=== PATIENT | female | born 1990 | race Caucasian/White ===

== ENCOUNTER 2017-04-16 15:21 | Emergency (ER) | payer BC ==
[2017-04-16] MEDS ORDERED: Tetan/Diph/Pertus SYR(Tdap)* 0.5 ML SYR(BOOSTRIX) use SYR IM ONE (15:41)
--- NOTE | 2017-04-16 16:10 | UC ---
Laceration HPI - HPI Summary HPI Summary: PT PRESENTS WITH C/O LACERATRION TO RIGHT SIDE FOREHEAD. PT WAS WALKING THOUGH [place] TODAY AND WALKED INTO [place]. DENIES LOC, NAUSEA VOMITING OR JOY - History Of Current Complaint Stated Complaint: HEAD LAC Time Seen by Provider: 04/16/17 15:31 Hx Obtained From: Patient Laceration Location: Head - forehead Mechanism Of Injury: Blunt Trauma Onset/Duration: Sudden Onset Severity: Mild Aggravating Factors: Movement Related History: Dominant Hand Right - Allergies/Home Medications Allergies/Adverse Reactions: Allergies Allergy/AdvReac Type Severity Reaction Status Date / Time No Known Allergies Allergy Verified 04/16/17 16:11 Home Medications: Home Medications Ibuprofen TAB* [Motrin TAB* 800 MG] 800 mg PO Q6H 04/16/17 [History Confirmed ] PMH/Surg Hx/FS Hx/Imm Hx Previously Healthy: Yes - Family History Known Family History: Positive: Other - positive [facility] for laceration - Social History Lives: With Family Review of Systems Constitutional: Negative Skin: Other - laceration Eyes: Negative ENT: Negative Respiratory: Negative Cardiovascular: Negative Gastrointestinal: Negative Genitourinary: Negative Motor: Negative Neurovascular: Negative Musculoskeletal: Negative Neurological: Negative Psychological: Negative All Other Systems Reviewed And Are Negative: Yes Physical Exam Triage Information Reviewed: Yes Appearance: Well-Appearing Vital Signs Reviewed: Yes Eye Exam: Normal ENT Exam: Normal Neck exam: Normal Respiratory Exam: Normal Musculoskeletal Exam: Normal Neurological Exam: Normal Psychological Exam: Normal Skin Exam: Other - laceration right side forehead Laceration Repair - Laceration Repair 1 Description: Linear Laceration Size After Repair: Length (cm) - 2.5, Width (mm) - 3, Depth (mm) - 1 Modified For Repair: No Cleansing Completed Via Routine Prep: Yes Closure Material: [place] Closure Method: Single Layer Suture Of: Skin Laceration Course/Dx - Differential Dx - Laceration/Wound Differental Diagnoses: Laceration Provider Diagnoses: laceration tor right forehead. laceration repair with 2 mary to right side forehead Discharge - Discharge Plan Condition: Stable Disposition: HOME Patient Education Materials: Staple Care (ED), Facial Laceration (ED) Referrals: Lizett Novak NP [Primary Care Provider] - If Needed Additional Instructions: PLEASE RETURN IN 3-5 DAYS FOR STAPLE REMOVAL.
[2017-04-16 16:19] VITALS: BP 102/53
== END 2017-04-16 16:29 | disposition home or self-care (01) ==
LOC: UCCORT 15:21
DX: S01.81XA Laceration without foreign body of other part of head, initial encounter (principal); W22.8XXA Striking against or struck by other objects, initial encounter
CPT/HCPCS: 12051; 90471; 90715; 99201; G0463

== ENCOUNTER 2017-04-20 12:23 | Emergency (ER) | payer BC ==
[2017-04-20 13:43] VITALS: BP 106/56
--- NOTE | 2017-04-20 13:48 | UC ---
Skin Complaint HPI - HPI Summary HPI Summary: Pt presents for staple removal to right side of forehead. Pt had two mary placed on 04/16/17. - History of Current Complaint Chief Complaint: UCGeneralIllness Stated Complaint: SUTURE REMOVAL Hx Obtained From: Patient Hx Last Menstrual Period: 03/27/17 ?: No Onset/Duration: Sudden Onset Skin Exposure Onset/Duration: Days Ago Timing: Constant Onset Severity: Mild Current Severity: Mild Location: Face - right side forehead Aggravating: Touch Alleviating: Unknown Associated Signs & Symptoms: Positive: Negative Related History: Trauma - branch that hit side of head while walking - Allergy/Home Medications Allergies/Adverse Reactions: Allergies Allergy/AdvReac Type Severity Reaction Status Date / Time No Known Allergies Allergy Verified 04/20/17 13:42 Review of Systems Constitutional: Negative Skin: Other - laceration with 2 mary in tact, not s/sx of infection, Eyes: Negative ENT: Negative Respiratory: Negative Cardiovascular: Negative Gastrointestinal: Negative Genitourinary: Negative Motor: Negative Neurovascular: Negative Musculoskeletal: Negative Neurological: Negative Psychological: Negative All Other Systems Reviewed And Are Negative: Yes PMH/Surg Hx/FS Hx/Imm Hx Previously Healthy: Yes - Surgical History Surgical History: Yes Surgery Procedure, Year, and Place: T/A. Hernia - Family History Known Family History: Positive: Other - positive [facility] for laceration - Social History Lives: With Family Alcohol Use: Rare Substance Use Type: Marijuana Substance Use Comment - Amount & Last Used: occasionally Smoking Status (MU): Current Every Day Smoker - Immunization History Most Recent Influenza Vaccination: NONE 2016 Physical Exam Triage Information Reviewed: Yes Appearance: Well-Appearing Vital Signs: Initial Vital Signs Temp 99.2 F 04/20/17 13:38 Pulse 56 04/20/17 13:38 Resp 16 04/20/17 13:38 BP 106/56 04/20/17 13:38 Pulse Ox 98 04/20/17 13:38 Eye Exam: Normal Neck exam: Normal Respiratory Exam: Normal Respiratory: Positive: No respiratory distress Musculoskeletal Exam: Normal Neurological Exam: Normal Psychological Exam: Normal Skin Exam: Other - two mary removed from right side of forehead. edges well approximated, Course/Dx - Differential Diagnoses - Skin Complaint Differential Diagnoses: Other - staple removal healing wound - Diagnoses Provider Diagnoses: staple removal. healing laceration Discharge - Discharge Plan Condition: Stable Disposition: HOME Patient Education Materials: Stitches Removal (ED), Facial Laceration (ED) Referrals: No Primary Care Phys,NOPCP [Primary Care Provider] - If Needed
== END 2017-04-20 14:01 | disposition home or self-care (01) ==
LOC: UCCORT 12:23
DX: Z45.02 Encounter for adjustment and management of automatic implantable cardiac defibrillator (principal); F17.200 Nicotine dependence, unspecified, uncomplicated

== ENCOUNTER 2018-07-15 06:03 | Inpatient (IN) | payer BC ==
[2018-07-14 16:15] LABS: ABS Basophils 0 10^3/ul (0-0.2); ABS Eosinophils 0.1 10^3/ul (0-0.6); ABS Neutrophils 9.2 10^3/ul (1.5-7.7); ABS Nucleated RBC 0 10^3/ul; Eosinophil % 0.4 % (0-6); Hematocrit 33 % (35-47); Hemoglobin 11.1 g/dl (12.0-16.0); Lymphocyte % 16.2 % (25-47); Mean Corpuscular HGB Conc 34 g/dl (31-36); Mean Corpuscular Hemoglobin 29 pg (27-31); Mean Corpuscular Volume 86 fL (80-97); Mean Platelet Volume 8.1 um3 (7.4-10.4); Nucleated Red Blood Cells % 0.1; Platelet Count 280 10^3/ul (150-450); Red Blood Count 3.79 10^6/ul (4.00-5.40); Red Cell Distribution Width 13 % (10.5-15); White Blood Count 12.2 10^3/ul (3.5-10.8)
[~2018-07-15 06:03] MED LIST: Buffered Lidocaine 0.9% SYRIN* 5 ML/SYR SYRINGE INTRADERM ONE
[2018-07-15] MEDS ORDERED: ceFOXitin 2 GM IVPREMIX* 2 GM/50 ML BAG IVPB ONE (06:30)
[2018-07-15] MEDS ORDERED: Morphine PF AMP (0.5MG/ML)* 5 MG/10 ML AMP ONE ×2 (07:22→07:23)
[2018-07-15] MEDS ORDERED: ROPIVACAINE 5 MG/ML 30 ML BTL (0.5%) ONE (07:23)
[2018-07-15] MEDS ORDERED: Bupivacaine-MPF SPINAL* 7.5 MG/ML - 2ML AMP ONE ×2 (07:24→08:22)
[2018-07-15] MEDS ORDERED: Lidocaine 2% PF * 5 ML VIAL ONE (07:25)
[2018-07-15] MEDS ORDERED: Sodium Citrate/Citric Acid* 15 ML UDC PO ONE (07:30)
[2018-07-15] MEDS ORDERED: Phenylephrine INJ* 10 MG/ML 1 ML VIAL (10 MG) ONE (07:58)
[2018-07-15] MEDS ORDERED: Ondansetron INJ* 2 MG/ML VIAL ONE (08:30)
[2018-07-15] MEDS ORDERED: Dexamethasone IV* 4 MG/ML 1 ML (4 MG) ONE (08:30)
[2018-07-15] MEDS ORDERED: OXYTOCIN* 10 UNITS/ML 1 ML VIAL ONE (08:30)
[2018-07-15] MEDS ORDERED: fentaNYL* 50 MCG/ML 2 ML VIAL (100 MCG VIAL) IV PRN (08:42)
[2018-07-15] MEDS ORDERED: oxyCODONE TAB* 5 MG TAB PO PRN ×2 (08:42→08:43)
[2018-07-15] MEDS ORDERED: diPHENhydraMINE IV* 50 MG/ML 1 ml VIAL (BENADRYL) IV PRN (08:42)
[2018-07-15] MEDS ORDERED: Naloxone* 0.4 MG/ML 1 ML VIAL IV PRN ×2 (08:42→08:43)
[2018-07-15] MEDS ORDERED: DiMENhydriNATE IV* 50 MG/ML VIAL IV PUSH PRN ×2 (08:42→08:43)
[2018-07-15] MEDS ORDERED: Ketorolac INJ* 30 MG/ML 1 ML VIAL IV PRN (08:42)
[2018-07-15] MEDS ORDERED: Acetaminophen IV 1GM/100ML * 1,000 MG/100 ML VIAL IVPB ONE (08:42)
[2018-07-15] MEDS ORDERED: Scopolamine 1.5 mg* PATCH TRANSDERM PRN (08:43)
[2018-07-15] MEDS ORDERED: Ondansetron INJ* 2 MG/ML VIAL IV PRN (08:43)
[2018-07-15] MEDS ORDERED: Nalbuphine* 10 MG/ML 1 ML VIAL IV PRN (08:43)
[2018-07-15] MEDS ORDERED: Glycerin ADULT SUPP PR PRN (09:07)
[2018-07-15] MEDS ORDERED: Dibucaine 1% 28.35 GM TUBE PR PRN (09:07)
[2018-07-15] MEDS ORDERED: Zolpidem TAB* 5 MG PO PRN (09:07)
[2018-07-15] MEDS ORDERED: Witch Hazel PAD* JAR TOPICAL PRN (09:07)
[2018-07-15] MEDS ORDERED: Ketorolac INJ* 30 MG/ML 1 ML VIAL ONE (09:35)
[2018-07-15] MEDS ORDERED: Acetaminophen IV 1GM/100ML * 100 ML ONE (09:35)
[2018-07-15] MEDS: Simethicone TAB* 80 MG TAB.CHEW PO SCH ×3 (13:05→22:02)
[2018-07-15] MEDS: Docusate CAP* 100 MG PO SCH ×2 (15:21→22:02)
[2018-07-15] MEDS: Ketorolac INJ* 30 MG/ML 1 ML VIAL IV SCH ×2 (15:52→22:02)
[2018-07-15] MEDS: Acetaminophen TAB* 325 MG PO SCH (18:04)
--- NOTE | 2018-07-15 22:23 | OP ---
DATE OF OPERATION: 07/15/18 - ROOM #117 DATE OF : 89 SURGEON: Marina Gonzales MD WOOL WASHING MACHINE OPERATOR: Milton Bauer CNM ANESTHESIOLOGIST: Dr. Yasmin Pearl. ANESTHESIA: Spinal. PRE-OP DIAGNOSIS: Intrauterine , right sacrum anterior mary breech, at 39 and 3/7th weeks. POST-OP DIAGNOSIS: Intrauterine , right sacrum anterior mary breech, at 39 and 3/7th weeks, delivered. OPERATIVE PROCEDURE: Primary low transverse section. ESTIMATED BLOOD LOSS: 500 cc. URINE OUTPUT: 300 cc of clear yellow urine. FLUIDS: 2650 cc of crystalloid. FINDINGS: Revealed mary breech right sacrum anterior, nuchal cord x1, short umbilical cord. Placenta posterior implantation, 3-vessel cord, manually extracted, and intact. Uterine cavity without synechiae, septums or intrauterine abnormalities appreciated. Male , Apgars were 8 at 1 minute , 9 at 5 minutes, weight was 6 pounds 11 ounces. No meconium. COMPLICATIONS: None apparent. DISPOSITION: Stable to recovery room. DESCRIPTION OF PROCEDURE: The patient was placed in dorsal lithotomy position. The abdomen was prepped and draped in a sterile standard fashion. Anesthesia was tested to appropriate level. An incision was made 2 fingerbreadths above the pubic symphysis. This was carried down through the fascia. The fascia was scored in the midline, extended laterally and superiorly using curved Vines scissors. Fascia was sharply from the rectus muscle using blunt and sharp dissection. The peritoneum was then entered bluntly and the peritoneal incision was extended bluntly. The bladder blade was inserted. The lower uterine segment was identified. The bladder flap was created with blunt and sharp dissection. Allis was used to tent up on the lower uterine segment. An incision was made with a scalpel. This was carried down through to membranes. Small amniotomy was created. Bandage scissors were used to extend this incision superiorly and laterally. The infant was found to be right sacrum anterior, buttocks were delivered, then legs, and right and then left shoulder, and then head delivered. Nuchal cord was reduced with head delivery. The cord was noted to be extremely short and the cord was milked and clamped and then cut. The was handed off to awaiting cloud services architect. Appropriate cord blood was obtained. Placenta was then manually extracted, noted to be intact. Three- vessel cord. Uterine cavity was explored, noted to free of any membranes or placental tissues. Uterus was exteriorized, wrapped in warm, moist laparotomy sponge, tubes and ovaries were noted to have a normal appearance. The hysterotomy incision was reapproximated in 2 layers, first layer running locked 0 Vicryl, second layer running imbricated 0 Vicryl. The uterus was returned intraabdominally. Colic gutters were lavaged. Hemostasis was assured at the hysterotomy site. Peritoneum was then clamped with Jackie and reapproximated using 3-0 Vicryl in a running fashion. The subfascial area was visualized and noted to be hemostatic. The fascia was reapproximated using 0 Vicryl x2 in a running fashion. Subcutaneous Camper's fascia was visualized. Hemostasis was assured and the Camper's fascia was approximated using 3-0 Vicryl in an interrupted fashion. The skin was then reapproximated using 4-0 Monocryl in a subcuticular fashion. Mastisol and Steri were applied. All sponge, needle, instrument, and blade counts were correct throughout the case. The patient tolerated the procedure well and went to recovery room in a stable condition. [id number]/[facility] #: [id number] SHERRI
[2018-07-16] MEDS ORDERED: oxyCODONE/Acetamin 5/325 MG* TAB PO PRN ×2 (00:43)
[2018-07-16] MEDS: Acetaminophen TAB* 325 MG PO SCH (02:06)
[2018-07-16] MEDS: Ketorolac INJ* 30 MG/ML 1 ML VIAL IV SCH (06:22)
[2018-07-16 06:40] LABS: Hematocrit 29 % (35-47); Hemoglobin 9.8 g/dl (12.0-16.0); Mean Corpuscular HGB Conc 34 g/dl (31-36); Mean Corpuscular Hemoglobin 30 pg (27-31); Mean Corpuscular Volume 87 fL (80-97); Mean Platelet Volume 8.1 um3 (7.4-10.4); Platelet Count 246 10^3/ul (150-450); Red Blood Count 3.31 10^6/ul (4.00-5.40); Red Cell Distribution Width 13 % (10.5-15); White Blood Count 20.3 10^3/ul (3.5-10.8)
[2018-07-16 07:14] LABS: ABS Basophils 0 10^3/ul (0-0.2); ABS Eosinophils 0 10^3/ul (0-0.6); ABS Lymphocytes 2.4 10^3/ul (1.0-4.8); ABS Monocytes 1.9 10^3/ul (0-0.8); ABS Nucleated RBC 0 10^3/ul; Eosinophil % 0.2 % (0-6); Lymphocyte % 11.8 % (25-47); Nucleated Red Blood Cells % 0
[2018-07-16] MEDS: Docusate CAP* 100 MG PO SCH ×3 (08:47→20:14)
[2018-07-16] MEDS: Ferrous Gluconate TAB* 324 MG TAB PO SCH ×2 (08:47→20:14)
[2018-07-16] MEDS: Simethicone TAB* 80 MG TAB.CHEW PO SCH ×4 (08:47→20:14)
[2018-07-16] MEDS ORDERED: Measles, Mumps,Rubella VACC* 0.5 ML/VIAL SUBCUT ONE (09:00)
[2018-07-16] MEDS: Acetaminophen TAB* 325 MG PO PRN ×2 (14:46→20:14)
[2018-07-16] MEDS: Ibuprofen TAB* 600 MG PO PRN ×2 (16:15→22:34)
[2018-07-17] MEDS: Acetaminophen TAB* 325 MG PO PRN (06:15)
[2018-07-17 08:20] VITALS: BP 104/52
[2018-07-17] MEDS: Simethicone TAB* 80 MG TAB.CHEW PO SCH (08:49)
[2018-07-17] MEDS: Ferrous Gluconate TAB* 324 MG TAB PO SCH (08:49)
[2018-07-17] MEDS: Docusate CAP* 100 MG PO SCH (08:49)
[2018-07-17] MEDS: Ibuprofen TAB* 600 MG PO PRN (11:51)
[2018-07-18] MEDS ORDERED: Scopolamine PATCH Remove* 1 NOTE MISC PATCH OFF PRN (08:45)
== END 2018-07-17 13:45 | disposition home or self-care (01) | DRG 540 ==
LOC: MCHOB 06:03
PROVIDERS: ADMIT Obstetrics & Gynecology; ATTEND Obstetrics & Gynecology
PROC: 10D00Z1 Extraction of Products of Conception, Low, Open Approach (ICD-10-PCS; principal; 2018-07-15 07:45)
DX: O32.1XX0 Maternal care for breech presentation, not applicable or unspecified (principal); O69.3XX0 Labor and delivery complicated by short cord, not applicable or unspecified; Z3A.39 39 weeks gestation of pregnancy; Z37.0 Single live birth
CPT/HCPCS: 36415; 85025; 86850; 86900; 86901; 90686; 90707; A9270-GY; J0694; J1100; J1240; J1885; J2405; J2590; J2795